=== PATIENT | male | born 1955 | race Caucasian/White ===

== ENCOUNTER 2022-11-19 10:55 | Day surgery (SDC) | payer OTHER ==
[~2022-11-19] VITALS: Ht 170.2 cm; Wt 81.6 kg
[2022-11-19] MEDS ORDERED: diphenhydrAMINE 50 MG/ML VIAL ONE (12:00)
[2022-11-19] MEDS ORDERED: fentaNYL citrate 0.05 MG/ML VIAL ONE ×2 (12:01)
[2022-11-19] MEDS ORDERED: LIDOCAINE 2% 100 MG/5 ML UJET TP ONE (12:01)
[2022-11-19] MEDS ORDERED: MIDAZOLAM 5 MG/5 ML VIAL ONE (12:16)
[2022-11-19] MEDS ORDERED: fentaNYL citrate 0.05 MG/ML VIAL IVP ONE (13:10)
[2022-11-19] MEDS ORDERED: MIDAZOLAM 2 MG/2 ML VIAL IVP ONE (13:10)
== END 2022-11-19 13:23 | disposition home or self-care (01) ==
LOC: MMU 10:55 → MDS 10:55
PROVIDERS: ATTEND Internal Medicine Gastroenterology
DX: Z12.11 Encounter for screening for malignant neoplasm of colon (principal); K29.50 Unspecified chronic gastritis without bleeding; B96.81 Helicobacter pylori [H. pylori] as the cause of diseases classified elsewhere; I10 Essential (primary) hypertension; E78.00 Pure hypercholesterolemia, unspecified; E11.9 Type 2 diabetes mellitus without complications; Z79.899 Other long term (current) drug therapy; Z20.822 Contact with and (suspected) exposure to COVID-19
CPT/HCPCS: 43239; 87426; 88305; 88312; 88313; 88342; G0121; J2250; J3010; J1200